=== PATIENT | female | born 1990 | race Two or more races ===

== ENCOUNTER → 2024-02-23 | Outpatient (CLI) | payer MEDICAID, SELFPAY ==
--- NOTE | 2024-02-23 16:27 | XR_ITS ---
Examination: Tibia-Fibula, right , 2 views Technique: Tibia-fibula AP lateral 2 views Date and time of exam: February 23, 2024 1636 hours INDICATIONS: Patient fell one month ago with injury to the lower leg, lower leg pain. FINDINGS: Subacute fracture proximal fibula without significant displacement Tibia intact IMPRESSION: Acute fracture proximal fibula without significant displacement
== END | disposition home or self-care (01) ==
PROVIDERS: PCP Nurse Practitioner Family; Referring Provider Nurse Practitioner Family; Visit Provider Nurse Practitioner Family
DX: S82.401A Unspecified fracture of shaft of right fibula, initial encounter for closed fracture (principal); W19.XXXA Unspecified fall, initial encounter
CPT/HCPCS: 73590

== ENCOUNTER → 2024-05-10 | Outpatient (CLI) | payer MEDICAID, SELFPAY ==
--- NOTE | 2024-05-10 07:00 | XR_ITS ---
Examination: MRI right ankle, without contrast Date and time of exam: May 10, 2024 0655 hours INDICATIONS: Injury to the ankle January 26, 2024 with ankle clicking stiffness and swelling 3 months Technique: Multiple axial sagittal and coronal images of the right ankle have been obtained with the Siemens high-resolution 1.5 Laura MRI scanner. Images obtained include T2-weighted fat-suppressed sagittal sections, TR 3500, TE 46, T2 weighted coronal fat suppressed images, TR 3050, TE 84, T2-weighted transverse fat suppressed images, TR 3260, TE 63, proton density transverse images, TR 4720 TE 46, and T1 weighted coronal images, TR 560, TE 13. Findings: Mild biconvex thickening of the Achilles tendon Mild marrow edema posterior tibia No ankle dislocation Negative for sinus Tarsi syndrome Dome of the talus is intact Plantar fascia is intact Anterior posterior inferior tibiofibular ligaments intact Complete tear anterior talofibular ligament axial image 13 Moderate sprain posterior talofibular ligament Moderate sprain calcaneofibular ligament IMPRESSION: No acute fracture Complete tear anterior talofibular ligament Moderate sprain posterior talofibular ligament Moderate sprain calcaneofibular ligament
== END | disposition home or self-care (01) ==
PROVIDERS: PCP Nurse Practitioner Family; Referring Provider Nurse Practitioner Family; Visit Provider Nurse Practitioner Family
DX: S93.431A Sprain of tibiofibular ligament of right ankle, initial encounter (principal); S93.491A Sprain of other ligament of right ankle, initial encounter; X58.XXXA Exposure to other specified factors, initial encounter; S93.411A Sprain of calcaneofibular ligament of right ankle, initial encounter
CPT/HCPCS: 73721